=== PATIENT | male | born 1990 | race Caucasian/White ===

== ENCOUNTER 2022-10-19 11:49 | Emergency (ER) | payer MEDICAID ==
[~2022-10-19] VITALS: Ht 180.3 cm; Wt 99.3 kg
[2022-10-19 12:24] VITALS: BP 139/102
[2022-10-19 13:06] LABS: Amphetamine Screen, Urine POSITIVE (NEGATIVE); Barbiturate Scree,Urine NEGATIVE (NEGATIVE); Benzodiazephine Screen, Urine POSITIVE (NEGATIVE); Cannabinoid Screen, Urine NEGATIVE (NEGATIVE); Cocaine Screen, Urine NEGATIVE (NEGATIVE); Opiate Scree,Urine NEGATIVE (NEGATIVE); Phencyclidine Screen, Urine NEGATIVE (NEGATIVE)
[2022-10-19 13:38] LABS: Urine Bacteria NONE SEEN /hpf (None Seen); Urine Blood Negative /uL (Negative); Urine WBC 1 /hpf (0 - 3)
[2022-10-19] MEDS ORDERED: ACET-1079 PO (16:00)
[2022-10-19] MEDS ORDERED: CYCL-837 PO (16:00)
== END 2022-10-19 16:19 | disposition home or self-care (01) ==
LOC: ER 11:49
DX: R30.0 Dysuria (principal); F15.10 Other stimulant abuse, uncomplicated; M79.18 Myalgia, other site; F17.210 Nicotine dependence, cigarettes, uncomplicated; N18.6 End stage renal disease; R44.1 Visual hallucinations; Z79.899 Other long term (current) drug therapy
CPT/HCPCS: 80307; 81001